=== PATIENT | female | born 1980 | race Caucasian/White ===

== ENCOUNTER 2024-01-28 09:18 | Emergency (ER) | payer OTHER, SELFPAY ==
[2024-01-28 09:22] VITALS: BP 169/117; PULSE 90; RESP 16; TEMP 36.7; O2SAT 98; BMI 37.4
--- NOTE | 2024-01-28 09:44 | CT_ITS ---
WS: [id number] CT HEAD TECHNIQUE: Noncontrast CT of the head obtained from the skullbase to the vertex. CLINICAL INFORMATION: Headache, hypertension, vertigo COMPARISON: None. DLP: 1089.[address] scans at [facility] use at least one of these dose optimization techniques: automated e xposure control; mA and/or kV adjustment per patient size (includes targeted exams where dose is matc hed to clinical indication); or iterative reconstruction. FINDINGS: No evidence of intracranial hemorrhage or mass effect. Ventricular system and basal cisterns are goel nt. No extra-axial fluid collections. No evidence of mass or mass effect. Normal acosta-white different iation. Paranasal sinuses and mastoid air cells are well aerated. .Normal visualized soft tissues. IMPRESSION: 1. No evidence of intracranial hemorrhage or mass effect. 2. No acute intracranial findings.
--- NOTE | 2024-01-28 09:44 | XR_ITS ---
WS: [id number] Examination: XR chest 1V portable [id number] Reason for Exam: Chest pain Date: January 28, 2024 Comparison: None. Findings: The cardiomediastinal silhouette is within normal limits on this AP portable supine film. There is no pulmonary edema or pleural effusion. No dense consolidation is identified. Impression: No acute lung process is seen.
--- NOTE | 2024-01-28 09:45 | ED_ITS ---
HPI - Headache 2 General: Chief Complaint: Headache Stated Complaint: dizzy,nausea, elevated bp Time Seen by Provider: 01/28/24 09:40 History of Present Illness: 43-year-old female who presents emergenc y room with headache, dizziness/vertigo, chest discomfort and hypertension. Says her blood pressure at home was in the 190s over about 117. She has had some mild congestion and a cough. No shortness of breath. No abdominal pain. No nausea or vomiting. No altered mental status. No focal motor deficits. Review of Systems 2 Narrative: Constitutional symptoms: Negative except as documented in HPI. Skin symptoms: Negative except as documented in HPI. Eye symptoms: Negative except as documented in HPI. ENMT symptoms: Negative except as documented in HPI. Respiratory symptoms: Negative except as documented in HPI. Cardiovascular symptoms: Negative except as documented in HPI. Gastrointestinal symptoms: Negative except as documented in HPI. Genitourinary symptoms: Negative except as documented in HPI. Musculoskeletal symptoms: Negative except as documented in HPI. Neurologic symptoms: Negative except as documented in HPI. Psychiatric symptoms: Negative except as documented in HPI. Endocrine symptoms: Negative except as documented in HPI. Physical Exam 2 Narrative: EXAM NARRATIVE: General: Alert, no acute distress. Skin: Warm, dry. Head: Normocephalic, atraumatic. Neck: Supple, trachea midline. Eye: Extraocular movements are intact. Ears, nose, mouth and throat: mucosa moist. Cardiovascular: Regular, Normal peripheral perfusion. Respiratory: Lungs are clear to auscultation, respirations are non-labored, breath sounds are equal, Symmetrical chest wall expansion. Gastrointestinal: Soft, Nontender, Non distended, Normal bowel sounds. Musculoskeletal: Normal ROM, no deformity. Neurological: Alert and oriented, No focal neurological deficit observed. Psychiatric: Cooperative, appropriate mood & affect. Course 2 Vital Signs: Vital signs: Vital Signs Temperature 98.0 F 01/28/24 09:22 Pulse Rate 83 01/28/24 11:16 Respiratory Rate 16 01/28/24 09:22 Blood Pressure 166/98 01/28/24 11:16 Pulse Oximetry 97 01/28/24 11:16 Oxygen Delivery Me thod Room Air 01/28/24 11:16 MDM - Headache Medical Decision Making Medical decision making: Differential diagnosis including but not limited to and based on the above HPI, review of systems and physical exam: With this patient having vertigo and hypertension with headache CT scan was ordered to rule out intracranial pathologies such as stroke. With her having chest discomfort and hypertension an EKG and a troponin were ordered. Basic lab work was ordered. Also flu or COVID given that she has had some congestion and cough. Orders placed to evaluate differential diagnosis based on the above differential, HPI and physical exam Lab Review: Laboratory results were reviewed and interpreted by myself the emergency room physician. White count was 8. Hemoglobin is 13. BUN/creatinine are normal at 9 and 0.6. Flu and COVID are negative. Troponin is negative. Chest x-ray: No acute process. No infiltrate. No pneumothorax. No cardiomegaly. This was reviewed and interpreted by myself the ER physician. CT head: No acute intracranial process. no intracranial hemorrhage, no evidence of infarct. no evidence of acute fracture.This was reviewed and interpreted by myself the ER physician. EKG: Time 9:48 AM rate 62 normal sinus rhythm, No ST-T changes, no ectopy, normal DC & QRS intervals, This was reviewed and interpreted by myself the ER physician at 9:54 AM. Reexamination: Patient remained stable. No increased work of breathing. She says her dizziness is improved somewhat. Her blood pressure is improved as well. Lab Data 01/28/24 09:57 01/28/24 09:57 Laboratory Results WBC 8.14 10^3/uL (3.29-11.43) 01/28/24 09:57 RBC 4.58 10^6/uL (3.85-5.65) 01/28/24 09:57 Hgb 13.10 g/dL (11.27-16.99) 01/28/24 09:57 Hct 40.9 % (36-47) 01/28/24 09:57 MCV 89.3 fl (85-98) 01/28/24 09:57 MCH 28.6 pg (27-33) 01/28/24 09:57 MCHC 32.0 g/dL (30-55) 01/28/24 09:57 RDW 13.1 % (12.1-15.1) 01/28/24 09:57 Plt Count 284 10^3/cmm (157-399) 01/28/24 09:57 MPV 9.0 fL (7.4-10.4) 01/28/24 09:57 Neut % (Auto) 66.7 % 01/28/24 09:57 Lymph % (Auto) 23.7 % 01/28/24 09:57 [place] % (Auto) 6.4 % 01/28/24 09:57 Eos % (Auto) 2.6 % 01/28/24 09:57 Baso % (Auto) 0.4 % 01/28/24 09:57 Neut # (Auto) 5.43 10^3/uL (1.8-7.7) 01/28/24 09:57 Lymph # (Auto) 1.9 10^3/uL (0.8-4.8) 01/28/24 09:57 [place] # (Auto) 0.5 10^3/uL (0.2-0.9) 01/28/24 09:57 Eos # (Auto) 0.2 10^3/uL (0.0-0.8) 01/28/24 09:57 Baso # (Auto) 0.0 10^3/uL (0.0-0.1) 01/28/24 09:57 Nucleated RBC % (auto) 0 % 01/28/24 09:57 Nucleated RBCs # 0.0 /100WBC 01/28/24 09:57 Sodium 139 mmol/L (136-145) 01/28/24 09:57 Potassium 4.3 mmol/L (3.5-5.1) 01/28/24 09:57 Chloride 102 mmol/L (98-107) 01/28/24 09:57 Carbon Dioxide 29 mmol/L (22-29) 01/28/24 09:57 Anion Gap 12.3 (5-19) 01/28/24 09:57 BUN 9 mg/dL (6-20) 01/28/24 09:57 Creatinine 0.6 mg/dL (0.5-0.9) 01/28/24 09:57 GFR Calculation 108.1 mL/min (90-130) 01/28/24 09:57 Glucose 110 mg/dL (65-115) 01/28/24 09:57 Calculated Osmolality 287 mOsm/kg (285-295) 01/28/24 09:57 Calcium 10.6 mg/dL (8.5-10.5) H 01/28/24 09:57 Troponin T Baseline < 6 ng/L (0-10) 01/28/24 09:57 Influenza Type A Ag negative (Negative) 01/28/24 10:11 Influenza Type B Ag negative (Negative) 01/28/24 10:11 SARS-CoV-2 Ag (Rapid) negative (Negative) 01/28/24 10:30 All radiology interpretation(s) finalized by discharge Discharge Plan Discharge Patient Disposition: Home Clinical Impression: Hypertension, Headache, Vertigo, Chest pain, non-cardiac Condition: Stable Prescriptions: New clonidine HCl 0.1 mg tablet 0.05 mg PO Q8H PRN (Reason: hypertensive emergency) Qty: 20 0RF Rx Instructions: For systolic blood pressure greater than 180 or diastolic greater than 105 meclizine 25 mg tablet 25 mg PO QID PRN (Reason: dizziness) Qty: 20 0RF No Action albuterol sulfate 90 mcg/actuation HFA aerosol inhaler 1 - 2 puff INHALATION Q46H PRN (Reason: Shortness Of Breath) Discharge Orders: Discharge ED (Routine); Ordered 01/28/24 Ordered By: Vivi Tipton Discharge Diet: Usual diet Discharge Activity: Resume usual activity Patient Instructions: Vertigo (ED), Hypertension (ED), Opioid Safety, Pain Management Activity Restrictions/Additional Instructions: You have been screened and evaluated and felt safe for discharge. Health conditions do change or evolve sometimes and as such it is important that you follow up with your Primary Doctor to be re checked, 3-5 days is a general good time frame for follow up. You are always welcome to return to the ED for re assessment if your symptoms are worsening or you have new concerns Coding Level of Care Code ED Route Jumper for Bradley Cabrera
--- NOTE | 2024-01-28 09:49 | PC.PHAR ---
PT STATES IS 1980 NOT 1978. TO BE CORRECTED.
[2024-01-28 10:11] LABS: Basophils % 0.4 %; Eosinophils # 0.2 10^3/uL (0.0-0.8); Eosinophils % 2.6 %; Hematocrit 40.9 % (36-47); Lymphocytes # 1.9 10^3/uL (0.8-4.8); Lymphocytes % 23.7 %; Mean Corpuscular Hemoglobin 28.6 pg (27-33); Mean Corpuscular Volume 89.3 fl (85-98); Monocytes # 0.5 10^3/uL (0.2-0.9); Monocytes % 6.4 %; Neutrophils # 5.43 10^3/uL (1.8-7.7); Neutrophils % 66.7 %; Nucleated Red Blood Cells % 0 %; Platelet Count 284 10^3/cmm (157-399); Red Blood Count 4.58 10^6/uL (3.85-5.65); Red Cell Distribution Width 13.1 % (12.1-15.1); White Blood Count 8.14 10^3/uL (3.29-11.43)
[2024-01-28 10:13] VITALS: BP 149/104; PULSE 87; O2SAT 98
--- NOTE | 2024-01-28 10:20 | ECG_ITS ---
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 Measurements Intervals [place] Rate: 78 P: 7 HI: 162 QRS: 9 QRSD: 90 T: 2 QT: 364 QTc: 416 Interpretive Statements SINUS RHYTHM No previous ECG available for comparison Electronically Signed On 01-28-2024 11:42:49 CDT by Quang Nick M.D. [email or web address]
[2024-01-28 10:30] LABS: Troponin(5th) Baseline < 6 ng/L (0-10)
[2024-01-28 10:33] LABS: Anion Gap 12.3 (5-19); Blood Urea Nitrogen 9 mg/dL (6-20); Calcium 10.6 mg/dL (8.5-10.5); Carbon Dioxide 29 mmol/L (22-29); Chloride 102 mmol/L (98-107); Creatinine Clr Calc Pharmacy 140.2343; Glomerular Filtration Rate 108.1 mL/min (90-130); Glucose 110 mg/dL (65-115); Osmolality Calculated 287 mOsm/kg (285-295); Potassium 4.3 mmol/L (3.5-5.1); Sodium 139 mmol/L (136-145)
[2024-01-28 10:50] LABS: Influenza A by IFA negative (Negative); Influenza B by IFA negative (Negative)
[2024-01-28 10:51] LABS: SARS Covid-2 Antigen negative (Negative)
[2024-01-28 11:16] VITALS: BP 166/98; PULSE 83; O2SAT 97
[2024-01-28 11:40] VITALS: BP 166/98; PULSE 83; RESP 16; TEMP 36.7; O2SAT 97
== END 2024-01-28 11:43 | disposition home or self-care (01) ==
PROVIDERS: Emergency Provider Emergency Medicine
DX: R51.9 Headache, unspecified (principal); R42 Dizziness and giddiness; R07.89 Other chest pain; I10 Essential (primary) hypertension; Z11.52 Encounter for screening for COVID-19
CPT/HCPCS: 36415; 70450; 71045; 80048; 84484; 85025; 87426; 87804; 93005; 99285

== ENCOUNTER → 2024-04-22 08:36 | Outpatient (BNVA) | payer OTHER, SELFPAY | PROVIDERS: Visit Provider Podiatrist Foot & Ankle Surgery | DX: M25.571 Pain in right ankle and joints of right foot (principal); M65.28 Calcific tendinitis, other site | CPT/HCPCS: 73610 ==

== ENCOUNTER → 2025-08-30 15:24 | Outpatient (BNVA) | payer OTHER, SELFPAY | PROVIDERS: Visit Provider Obstetrics & Gynecology | DX: Z12.4 Encounter for screening for malignant neoplasm of cervix (principal) | CPT/HCPCS: 80053; 84443; 85025; 87624 ==

== ENCOUNTER → 2025-09-13 10:12 | Outpatient (BNVA) | payer OTHER, SELFPAY | PROVIDERS: Visit Provider Obstetrics & Gynecology | DX: N83.292 Other ovarian cyst, left side (principal); D25.1 Intramural leiomyoma of uterus; N88.8 Other specified noninflammatory disorders of cervix uteri; N83.8 Other noninflammatory disorders of ovary, fallopian tube and broad ligament; R93.5 Abnormal findings on diagnostic imaging of other abdominal regions, including retroperitoneum | CPT/HCPCS: 76830 ==